=== PATIENT | female | born 1995 | race African-American/Black ===

== ENCOUNTER 2017-11-27 19:40 | Emergency (ER) | payer MEDICAID, OTHER ==
[~2017-11-27] VITALS: Ht 160 cm; Wt 68.5 kg
[~2017-11-27 19:40] MED LIST: AVIATAB PO
[2017-11-27 19:42] VITALS: BP 132/66; PULSE 94; RESP 16; TEMP 98.3; O2SAT 100
[2017-11-27 20:51] LABS: AMORPHOUS SEDIMENT, URINE FEW; BACTERIA, URINE MOD /hpf; BILIRUBIN, URINE NEG (NEG); BLOOD, URINE NEG (NEG); GLUCOSE,URINE NEG (NEG); KETONE, URINE NEG (NEG); MUCUS URINE FEW /lpf (OCC); NITRITE,URINE NEG (NEG); PH, URINE 6.5 (5.0-8.5); SQUAMOUS EPITHELIAL CELL URINE 27 /hpf (0-5); URINE COLOR YELLOW (YELLW/STRAW); URINE LEUKOCYTE ESTERASE LARGE (NEG)
[2017-11-27] MEDS ORDERED: PREN29TA PO (21:34)
[2017-11-27] MEDS ORDERED: MACR100C2 PO (21:34)
--- NOTE | 2017-11-27 21:34 | PD ---
HPI Chief Complaint: Abdominal Pain Time Seen by Provider: 20:00 Travel History International Travel<30 days: No Contact w/Intl Traveler<30days: No Traveled to known affect area: No History of Present Illness HPI Patient 22-year-old female presents to emergency department lower abdominal cramping in the setting of . Patient states she had a positive test at home, states symptoms are mild, Duration for the past day,, in the setting of , not associated any nausea vomiting diarrhea vaginal bleeding vaginal discharge or loss of fluid. She is concerned to know how far along she has. PFSH Past Medical History Medical History: Denies Significant Hx Developmental Delay: No Immunizations Current: Yes Tetanus Vaccination: > 5 Years Influenza Vaccination: No ?: LMP: 10/10/17 : 2 Para: 1 Past Surgical History Surgical History: No Previous Surgery Social History Alcohol Use: No Tobacco Use: No Substance Use: No Allergies-Medications (Allergen,Severity, Reaction): Coded Allergies: penicillin G (Unverified Allergy, Severe, rash, 11/27/17) Reported Meds & Prescriptions Reported Meds & Active Scripts Active Plus Iron 29-1 mg ( Vit-Iron Carbonyl) 29 Mg Iron-1 Mg Tab 1 Tab PO DAILY Macrobid (Nitrofurantoin Monoh/Nitrofur Macro) 100 Mg Cap 100 Mg PO BID 7 Days Aviane (Ethinyl Estradiol/Levonorgestrel) 28 Tab Pack 1 Tab PO DAILY Vitafol Fe+ 90-1-200 & 50 mg ( Vit W/ Fe Polysacch C) 1 Cap Cap Review of Systems Except as stated in HPI: all other systems reviewed are Neg Physical Exam Narrative GENERAL: Well-developed well-nourished no obvious distress SKIN: Focused skin assessment warm/dry. HEAD: Atraumatic. Normocephalic. EYES: Pupils equal and round. No scleral icterus. No injection or drainage. ENT: No nasal bleeding or discharge. Mucous membranes pink and moist. NECK: Trachea midline. No JVD. CARDIOVASCULAR: Regular rate and rhythm. No murmur appreciated. RESPIRATORY: No accessory muscle use. Clear to auscultation. Breath sounds equal bilaterally. GASTROINTESTINAL: Abdomen soft, non-tender, nondistended. Hepatic and splenic margins not palpable. . GENITOURINARY: Deferred by patient MUSCULOSKELETAL: No obvious deformities. No clubbing. No cyanosis. No edema. NEUROLOGICAL: Awake and alert. No obvious cranial nerve deficits. Motor grossly within normal limits. Normal speech. PSYCHIATRIC: Appropriate mood and affect; insight and judgment normal. Data Data Last Documented VS Vital Signs Date Time Temp Pulse Resp B/P (MAP) Pulse Ox O2 Delivery O2 Flow Rate FiO2 11/27/17 22:01 11/27/17 19:42 98.3 94 16 100 Room Air Orders Orders Ed Urine Pregnancytest Poc (11/27/17 20:00) Urinalysis - C+S If Indicated (11/27/17 20:00) Ed Poc Ultrasound (11/27/17 ) Urine Culture (11/27/17 20:10) Ed Discharge Order (11/27/17 21:30) Labs Laboratory Tests Test 11/27/17 20:10 Urine Color YELLOW Urine Turbidity HAZY Urine pH 6.5 Urine Specific [place] 1.020 Urine Protein TRACE mg/dL Urine Glucose (UA) NEG mg/dL Urine Ketones NEG mg/dL Urine Occult Blood NEG Urine Nitrite NEG Urine Bilirubin NEG Urine Urobilinogen LESS THAN 2.0 MG/DL Urine Leukocyte Esterase LARGE Urine RBC 3 /hpf Urine WBC 18 /hpf Urine Squamous Epithelial Cells 27 /hpf Urine Amorphous Sediment FEW Urine Bacteria MOD /hpf Urine Mucus FEW /lpf Microscopic Urinalysis Comment CULTURE INDICATED MDM Medical Decision Making Medical Screen Exam Complete: Yes Emergency Medical Condition: Yes Differential Diagnosis Ectopic , round ligament pain, acute abdomen unlikely. Narrative Course Patient room to the emergency department, bedside ultrasound reassuring, her abdomen as benign. No indication for further workup as lads are reassuring. Discussed early care follow-up with primary care physician maternity criteria for Procedures Procedure Narrative Ultrasound: transabdominal views obtained of the uterus showing a single intrauterine with double decidual sign and a faint yolk sac. Too early for dating, too early for heart tones. No other abnormalities, no free fluid in the pelvis. Diagnosis Primary Impression: Abdominal cramping affecting Additional Impression: UTI (urinary tract infection) Med/Other Pt SpecificInfo: Prescription(s) given Scripts Vit-Iron Carbonyl ( Plus Iron 29-1 mg) 29 Mg Iron-1 Mg Tab 1 TAB PO DAILY for Nutritional Supplement, #30 TAB 9 Refills Prov: Joon Santana MD 11/27/17 Nitrofurantoin Monohydrate Macrocrystals (Macrobid) 100 Mg Cap 100 MG PO BID for Infection for 7 Days, #14 CAP 0 Refills Prov: Joon Santana MD 11/27/17 Disposition: 01 DISCHARGE HOME Condition: Stable Joon Santana MD Nov 27, 2017 21:34
== END 2017-11-27 22:02 | disposition home or self-care (01) ==
LOC: NEPD 19:40
DX: O26.891 Other specified pregnancy related conditions, first trimester (principal); R10.9 Unspecified abdominal pain; O23.41 Unspecified infection of urinary tract in pregnancy, first trimester
CPT/HCPCS: 81001; 84703; 87086; 99284